=== PATIENT | male | born 1990 | race Caucasian/White ===

== ENCOUNTER 2020-07-04 13:35 | Outpatient (REF) | payer MEDICAID, SELFPAY | END 2020-07-04 13:36 | disposition home or self-care (01) | LOC: HO.LAB 13:35 | PROVIDERS: Visit Provider Internal Medicine | DX: Z20.828 Contact with and (suspected) exposure to other viral communicable diseases (principal) | CPT/HCPCS: C9803; U0003 ==

== ENCOUNTER 2021-09-02 16:43 | Emergency (ER) | payer OTHER, MEDICAID, SELFPAY ==
--- NOTE | ~2021-09-02 | XR_ITS ---
EXAMINATION: XR CLAVICLE, LEFT CLINICAL INFORMATION: Severe pain with question fracture COMPARISON: Left clavicle 11/10/2013 TECHNIQUE: Two views of the left clavicle. FINDINGS: The clavicle is intact. The bones and soft tissues are normal. No fracture. Acromioclavicular joint alignment is anatomic. XR/XR clavicle LT IMPRESSION: Normal left clavicle.
--- NOTE | ~2021-09-02 | CT_ITS ---
EXAMINATION: CT CHEST WITHOUT CONTRAST CLINICAL INFORMATION: Severe anterior chest wall pain status post trauma. COMPARISON: Chest radiograph dated from 03/03/2020. TECHNIQUE: Multidetector volumetric CT imaging of the chest was done. Axial MIP volume rendering provided. Sagittal and coronal reformatted images were obtained. This CT examination was performed using dose optimization techniques as appropriate, variously including the following: *Automated exposure control *Adjustment of mA and/or kV according to patient size (this includes techniques or standardized protocols for targeted exams where dose is matched to indication/reason for exam; i.e. 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 LUNGS: The lungs are clear with no evidence of inflammation or nodules. MEDIASTINUM: The mediastinum is normal. PLEURA: There is no pleural effusion. No pleural mass or thickening. AXILLA: No lymphadenopathy. UPPER ABDOMEN: Unremarkable. OSSEOUS STRUCTURES: Unremarkable. CT/CT chest wo con IMPRESSION: No acute cardiothoracic findings. No evidence of acute osseous fractures.
[2021-09-02 18:40] VITALS: BP 128/57; PULSE 84; RESP 18; TEMP 37.1; O2SAT 99; BMI 25.0
--- NOTE | 2021-09-02 20:16 | ED_ITS ---
HPI - General Adult General Chief complaint: General Medical Stated complaint: shoulder pain Time Seen by Provider: 09/02/21 19:51 Source: patient Mode of arrival: ambulatory Limitations: no limitations History of Present Illness HPI narrative: 31-year-old male with history of recent left clavicular fracture on 08/13/2021 presents to the ER with ongoing clavicle pain that he rates at 10/10. He was seen at [facility] at the time of the injury, told he had a collar bone fracture. He reports he was given a sling but he has not been wearing it because it is ?broken. ? He reports he has been working despite the pain in his shoulder. 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 He is anxious and tearful. Pain in the left shoulder is worse with palpation and abduction. Located anter iorly over the clavicle. De denies left arm weakness, numbness, tingling, chest pain, shortness of breath. He reports the mechanism of injury at the time was 100 lb Litzy falling onto his chest from a forklift. He states [facility] told him he could have and he had a panic attack there during that ED visit. He states he only had xrays and not a CT scan. complaint: Clavicle pain with known fracture Onset (ago): week(s) Location: left and upper extremity Radiation: non-radiation Severity: severe Severity scale (1-10): 10 Quality: stabbing and aching Pain Consistency: constant Relieving factors: rest Exacerbating factors: movement Associated symptoms: denies other symptoms Treatments prior to arrival: none Related Data Previous Rx's Medication Instructions Recorded ibuprofen 600 mg tablet 600 mg PO Q8H PRN #30 tab 09/02/21 Allergies Allergy/AdvReac Type Severity Reaction Status Date / Time fentanyl AdvReac Vomiting Verified 09/02/21 20:52 morphine AdvReac Vomiting Verified 09/02/21 20:52 Review of Systems Review of Systems: Constitutional: No Fever, No Chills Cardiovascular: No Chest Pain, No SOB Gastrointestinal: No Nausea, No Vomiting Musculoskeletal: + joint pain, No Myalgias Skin: No Skin Lesions, No rash Neuro: No Weakness, No Numbness Heme/Lymph: No Bruising PMFSH Social History Social History Advance Directives: No Advance Directives Information Provided: No Physical Exam Vital Signs: Vital Signs: Last Vital Signs Temp 98.8 F 09/02/21 18:40 Pulse 84 09/02/21 18:40 Resp 16 09/02/21 22:08 BP 128/57 L 09/02/21 18:40 Pulse Ox 99 09/02/21 18:40 BMI result Body Mass Index 25.0 Appearance: Alert. Oriented X3. No acute distress. HEENT: normal inspection CVS: Normal heart rate and rhythm. Pulses normal. Respiratory: No respiratory distress. Lungs are clear throughout. Ribs 2 3 and 4 on the left side are very tender. No ecchymosis on the chest wall. Skin: Skin warm and dry. Normal skin color. Normal skin turgor. No rashes. Extremities: Left arm held in flexion and adduction. normal inspection of bilateral upper extremities and clavicles. tenderness of the lateral clavicle with pain upon ROM of the shoulder, mostly with arm abduction. NV intact distally. No gross deformity, no ecchymosis Neuro: Oriented X 3. No motor deficit. No sensory deficit. 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 He has part of the discharge treat work from [facility] on 08/14. Given his ongoing pain and significant tenderness will repeat x-ray for re-evaluation. Reevaluation(s) Reevaluation #1: X-ray showing a normal appearance of the clavicle. He is continues to be very tender over the anterior ribs and clavicle. Will get CT scan for further evaluation given the blunt trauma history. Reevaluation #2: CT scan is normal. His pain could be due to ongoing healing of the clavicle fracture and noncompliance with the sling. He has been using his left arm, doing lifting and constantly raising his arm to do his work. His arm was placed in a sling any feels much better. Will prescribe NSAID and provide a work note for modified duty. Patient stable for discharge. Encourage follow-up with orthopedics if pain persist. Critical Care Time Critical Care Time Critical Care Time: No Discharge Plan Discharge Clinical Impression: Fracture, clavicle Qualifiers: Encounter type: subsequent encounter Clavicle location: unspecified part of clavicle Fracture type: closed Fracture alignment: nondisplaced Laterality: left Fracture healing: with routine healing Qualified Code(s): S42.002D - Fracture of unspecified part of left clavicle, subsequent encounter for fracture with routine healing Patient Disposition: Home, Self-Care Instructions: Clavicle Fracture (ED) Additional Instructions: Your x-ray showed the collar bone fracture is healed. Your CT scan of the chest was normal, no broken bones. Recommend wearing the sling as needed for comfort to keep your arm immobilized Use ice several times per day. Recommend 975 mg of acetaminophen (Tylenol) every 6 hours. Take the prescribed anti-inflammatory pain medication as needed - take with food. Recommend following up with Orthopedics - name and number below Rios radiograf?a mostr? que la fractura de la clav?cula est? curada. Rios tomograf?a computarizada del t?rax fue normal, sin huesos rotos. Recomiende usar el cabestrillo seg?n sea necesario para mayor comodidad y mantener rios brazo inmovilizado Use hielo varias veces al d?a. Recomiende 975 mg de acetaminof?n (Tylenol) cada 6 horas. [place] los analg?sicos antiinflamatorios recetados seg?n sea necesario, t?melos con alimentos. Recomendar seguimiento con ortopedia: nombre y n?k[place] a continuaci?n Prescriptions: New ibuprofen 600 mg tablet 600 mg PO Q8H PRN (Reason: pain) Qty: 30 RF: 0 Referrals: [facility] [Provider Group] - 2 days Elina Gordon PA-C [Physician Erp Manager] - 2 days (broken clavicle 08/13/21) Stand Alone Forms: Work/School Release Print Language: Bahamian
[2021-09-02] MEDS: oxyCODONE HCl Immed Release 5 MG TABLET PO (20:53)
[2021-09-02 22:08] VITALS: RESP 16
== END 2021-09-03 00:05 | disposition home or self-care (01) ==
PROVIDERS: Emergency Provider Emergency Medicine Emergency Medical Services
DX: M25.512 Pain in left shoulder (principal); S42.002D Fracture of unspecified part of left clavicle, subsequent encounter for fracture with routine healing; W20.8XXD Other cause of strike by thrown, projected or falling object, subsequent encounter; Z91.19 Patient's noncompliance with other medical treatment and regimen
CPT/HCPCS: 71250; 73000; 99284

== ENCOUNTER → 2021-09-28 13:53 | Outpatient (BNVA) | payer OTHER, MEDICAID, SELFPAY | PROVIDERS: Visit Provider Physician Assistant | DX: S42.002D Fracture of unspecified part of left clavicle, subsequent encounter for fracture with routine healing (principal); M75.02 Adhesive capsulitis of left shoulder | CPT/HCPCS: 99202 ==

== ENCOUNTER → 2021-10-26 11:33 | Outpatient (BNVA) | payer OTHER, MEDICAID, SELFPAY | PROVIDERS: Visit Provider Physician Assistant | DX: M75.02 Adhesive capsulitis of left shoulder (principal) | CPT/HCPCS: 99212 ==

== ENCOUNTER 2023-01-26 08:00 | Outpatient (RCR) | payer MEDICAID, SELFPAY | END 2023-02-28 07:46 | disposition home or self-care (01) | LOC: HO.PTCHIC 08:00 | PROVIDERS: PCP Pediatrics; Visit Provider Orthopaedic Surgery | DX: M25.512 Pain in left shoulder (principal) | CPT/HCPCS: 97110; 97140; 97161 ==

== ENCOUNTER 2023-03-10 13:51 | Emergency (ER) | payer OTHER, MEDICAID, SELFPAY ==
--- NOTE | ~2023-03-10 | CT_ITS ---
EXAMINATION: CT HEAD WITHOUT CONTRAST CT CERVICAL SPINE WITHOUT CONTRAST CLINICAL INFORMATION: Trauma. COMPARISON: CT head CT cervical spine 02/02/2014 TECHNIQUE: Imaging was performed from the skull base to vertex without intravenous administration of contrast. In addition, helical noncontrast CT imaging was acquired through the cervical spine and source images were reviewed along with axial reconstructions and sagittal and coronal MPRs. [This CT examination was performed using dose optimization techniques as appropriate, variously including the following: *Automated exposure control *Adjustment of mA and/or kV according to patient size (this includes techniques or standardized protocols for targeted exams where dose is matched to indication/reason for exam; i.e. extremities or head) *Use of iterative reconstruction technique] DLP: 1035 mGy-cm FINDINGS: HEAD: No intracranial mass, hemorrhage, or midline shift is visualized. The ventricles and sulci are proportional. No extra-axial collections are identified. There is significant sinus mucosal opacification of the ethmoid. There is partial opacification mucosal thickening of the bilateral maxillary sinuses. Mucosal thickening at the anterior sphenoid sinuses. CERVICAL SPINE: There is no evidence of acute cervical spine fracture. Vertebral bodies remain normal in height. Cervical vertebrae have normal alignment. 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 No pre- or paravertebral soft tissue abnormality is identified. Limited assessment of the lung apices is unremarkable. CT/CT cervical spine wo IV con IMPRESSION: 1. No acute intracranial pathology. 2. No CT evidence of acute cervical spine fracture or traumatic subluxation
--- NOTE | ~2023-03-10 | CT_ITS ---
EXAMINATION: CT HEAD WITHOUT CONTRAST CT CERVICAL SPINE WITHOUT CONTRAST CLINICAL INFORMATION: Trauma. COMPARISON: CT head CT cervical spine 02/02/2014 TECHNIQUE: Imaging was performed from the skull base to vertex without intravenous administration of contrast. In addition, helical noncontrast CT imaging was acquired through the cervical spine and source images were reviewed along with axial reconstructions and sagittal and coronal MPRs. [This CT examination was performed using dose optimization techniques as appropriate, variously including the following: *Automated exposure control *Adjustment of mA and/or kV according to patient size (this includes techniques or standardized protocols for targeted exams where dose is matched to indication/reason for exam; i.e. extremities or head) *Use of iterative reconstruction technique] DLP: 1035 mGy-cm FINDINGS: HEAD: No intracranial mass, hemorrhage, or midline shift is visualized. The ventricles and sulci are proportional. No extra-axial collections are identified. There is significant sinus mucosal opacification of the ethmoid. There is partial opacification mucosal thickening of the bilateral maxillary sinuses. Mucosal thickening at the anterior sphenoid sinuses. CERVICAL SPINE: There is no evidence of acute cervical spine fracture. Vertebral bodies remain normal in height. Cervical vertebrae have normal alignment. 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 No pre- or paravertebral soft tissue abnormality is identified. Limited assessment of the lung apices is unremarkable. CT/CT head/brain wo IV con IMPRESSION: 1. No acute intracranial pathology. 2. No CT evidence of acute cervical spine fracture or traumatic subluxation
--- NOTE | ~2023-03-10 | XR_ITS ---
EXAMINATION: XR CHEST CLINICAL INFORMATION: Trauma. COMPARISON: CT chest 09/02/2021. Chest radiograph 03/03/2020. TECHNIQUE: 2 views of the chest were obtained. FINDINGS: No significant abnormality is noted involving the heart, lungs, mediastinum, bony thorax or soft tissues. XR/XR chest 2V IMPRESSION: Unremarkable examination.
[2023-03-10 14:01] VITALS: BP 134/72; PULSE 100; RESP 18; TEMP 36.7; O2SAT 97; BMI 25.8
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
[2023-03-10] MEDS: Acetaminophen 325 MG TABLET 975 MG PO (15:01)
--- NOTE | 2023-03-10 15:02 | PC.NURSE ---
medication administered per provider order.
--- NOTE | 2023-03-10 15:37 | PC.NURSE ---
jessi called [facility]- pt on phone with them at this time.
--- NOTE | 2023-03-10 16:05 | PC.NURSE ---
pt's pain level reassessed - pt states that there was no change in pain level upon tylenol administration.
[2023-03-10 16:19] VITALS: BP 131/63; PULSE 70; RESP 16; TEMP 37.1; O2SAT 99
[2023-03-10] MEDS: Ibuprofen 800 MG TABLET PO (17:07)
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
[2023-03-10 18:07] VITALS: BP 122/70; PULSE 75; RESP 16; TEMP 37.2; O2SAT 99
--- NOTE | 2023-03-10 18:19 | PC.NURSE ---
pt states that his pain has decreased post ibuprofen and tylenol administration. pt is requesting to see his sister in ED bed 1 prior to discharge.
== END 2023-03-10 18:29 | disposition home or self-care (01) ==
PROVIDERS: Emergency Provider Emergency Medicine
DX: S13.4XXA Sprain of ligaments of cervical spine, initial encounter (principal); R51.9 Headache, unspecified; M54.2 Cervicalgia; R07.89 Other chest pain; V43.52XA Car driver injured in collision with other type car in traffic accident, initial encounter; Y93.9 Activity, unspecified; Y92.410 Unspecified street and highway as the place of occurrence of the external cause; Y99.9 Unspecified external cause status
CPT/HCPCS: 70450; 71046; 72125; 99284

== ENCOUNTER 2023-06-20 10:59 | Outpatient (REF) | payer OTHER, MEDICAID, SELFPAY ==
[2023-06-20 14:14] LABS: Alanine Aminotransferase 13 U/L (0-40); Albumin Level 4.7 g/dL (3.5-5.0); Alkaline Phosphatase 60 U/L (39-117); Anion Gap 11 (12-20); Aspartate Amino Transferase 17 U/L (5-37); Bilirubin Total 0.4 mg/dL (0.0-1.0); Blood Urea Nitrogen 8 mg/dL (9-16); Calcium 9.9 mg/dL (8.4-10.2); Carbon Dioxide 27 mmol/L (22-29); Chloride 106 mmol/L (96-108); Cholesterol 232 mg/dL (<200); Estimated Glomerular Filt Rate > 60; Glucose Random 89 mg/dL (60-115); HDL Cholesterol 44 mg/dL (>40); LDL Cholesterol Calculated 173 mg/dL (<100); Potassium 3.8 mmol/L (3.3-5.1); Sodium 140 mmol/L (135-145); Total Protein 7.5 g/dL (6.5-8.0); Triglycerides 77 mg/dL (<150)
[2023-06-20 14:25] LABS: Syphilis Screen Nonreactive (Nonreactive)
[2023-06-23 14:19] LABS: HIV RNA PCR Qn Copies Not Detected Copies/mL; HIV RNA PCR Qn Log Copies Not Detected Log cps/mL
== END 2023-06-20 11:00 | disposition home or self-care (01) ==
LOC: HO.HHCL 10:59
PROVIDERS: Visit Provider Nurse Practitioner Family
DX: Z11.4 Encounter for screening for human immunodeficiency virus [HIV] (principal); Z20.2 Contact with and (suspected) exposure to infections with a predominantly sexual mode of transmission; G40.909 Epilepsy, unspecified, not intractable, without status epilepticus; F32.9 Major depressive disorder, single episode, unspecified; E83.52 Hypercalcemia; F19.91 Other psychoactive substance use, unspecified, in remission
CPT/HCPCS: 36415; 80053; 80061; 86780; 87536; 87900